=== PATIENT | female | born 1995 | race Caucasian/White ===

== ENCOUNTER 2021-09-01 06:59 | Day surgery (SDC) | payer OTHER ==
[2021-08-29 12:29] VITALS: BMI 30.4
[2021-09-01] MEDS ORDERED: Lidocaine 1% MPF 2 ML VIAL ONE (07:49)
[2021-09-01] MEDS ORDERED: PROPOFOL 20 ML ONE ×2 (09:17)
[2021-09-01] MEDS ORDERED: Lidocaine 2% MPF 10 ML AMP (For Epidural Use) ONE (09:17)
== END 2021-09-01 10:09 | disposition home or self-care (01) ==
LOC: CSHSDC 06:59
PROVIDERS: ATTEND Internal Medicine Gastroenterology
PROC: 0DJ08ZZ Inspection of Upper Intestinal Tract, Via Natural or Artificial Opening Endoscopic (ICD-10-PCS; principal; 2021-09-01)
DX: R10.9 Unspecified abdominal pain (principal); R11.0 Nausea; D64.9 Anemia, unspecified
CPT/HCPCS: J2704

== ENCOUNTER 2021-10-13 10:39 | Outpatient (CLI) | payer OTHER | END 2021-10-13 10:40 | disposition home or self-care (01) | LOC: CSHMRI 10:39 | PROVIDERS: ATTEND Neurological Surgery | DX: G93.9 Disorder of brain, unspecified (principal); R90.82 White matter disease, unspecified | CPT/HCPCS: 70553 ==

== ENCOUNTER 2021-11-28 08:27 | Outpatient (CLI) | payer OTHER | END 2021-11-28 08:28 | disposition home or self-care (01) | LOC: CSHRAD 08:27 | PROVIDERS: ATTEND Otolaryngology Plastic Surgery within the Head & Neck | DX: J36 Peritonsillar abscess (principal); Z98.890 Other specified postprocedural states; R16.2 Hepatomegaly with splenomegaly, not elsewhere classified; R59.0 Localized enlarged lymph nodes; E01.0 Iodine-deficiency related diffuse (endemic) goiter; J39.2 Other diseases of pharynx | CPT/HCPCS: 70491; 76700 ==

== ENCOUNTER 2022-04-13 15:26 | Day surgery (SDC) | payer OTHER ==
[2022-04-13 15:53] VITALS: BMI 30.6
[2022-04-13] MEDS ORDERED: Lactated Ringer's 1,000 ML IV SCH (16:30)
[2022-04-13] MEDS ORDERED: Magnesium Sulfate 20 gm/500 ml 20 GM/500 ML BAG IVPB SCH (17:00)
[2022-04-13] MEDS ORDERED: Betamet Acet/Betamet Na Ph 30 MG/5 ML VIAL IM SCH (17:00)
[2022-04-13] MEDS ORDERED: ceFAZolin 2 GM/Dextrose 50 ML IVPB ONE (17:11)
[2022-04-13] MEDS ORDERED: ceFAZolin 2 GM/Dextrose 50 ML 2 GM in Premix Bag 1 BAG IVPB SCH (22:00)
== END 2022-04-13 18:41 | disposition short-term general hospital (02) ==
LOC: CSHLD/OP 15:26
PROVIDERS: ATTEND Obstetrics & Gynecology
DX: O42.912 Preterm premature rupture of membranes, unspecified as to length of time between rupture and onset of labor, second trimester (principal); O09.212 Supervision of pregnancy with history of pre-term labor, second trimester; Z3A.23 23 weeks gestation of pregnancy; Z88.1 Allergy status to other antibiotic agents; Z88.2 Allergy status to sulfonamides; Z91.040 Latex allergy status
CPT/HCPCS: J0690; J0702; J3475

== ENCOUNTER 2022-06-23 18:42 | Day surgery (SDC) | payer OTHER ==
[2022-06-23 19:11] VITALS: BMI 29.7
[2022-06-23] MEDS ORDERED: hydrALAZINE 20 MG/ML VIAL SLOW IVP PRN (19:38)
[2022-06-23 20:06] LABS: Bilirubin Neg (Negative); Blood, Urine 150 (Negative); Clarity Clear (Clear); Glucose, Urine (Dipstick) Normal (Negative); Ketone, Urine Negative (Negative); Leukocyte 500 (Negative); Nitrite Negative (Negative); Protein, Urine (Dipstick) Negative (Neg-Trace); Specific Gravity, Urine 1.005 (1.002-1.036); Urobilinogen Normal mg/dL (Less than 2)
[2022-06-23 20:13] LABS: Bacteria/HPF Rare-Few HPF (None Seen); Mucous/LPF Rare LPF (<2+); Squamous Epithelial 0-3 HPF (0-3)
[2022-06-23 20:33] LABS: Hemoglobin 8.8 g/dL (12.0-15.5); Mean Corpuscular HGB CONC 34.9 g/dL (32.0-36.0); Mean Corpuscular Hemoglobin 33.3 pg (27.0-33.0); Mean Corpuscular Volume 95.5 fl (81.6-98.3); Mean Platelet Volume 9.6 fl (7.4-10.4); Platelet Count 170 10x3/uL (150-450); RBC Distribution Width 14.4 % (11.5-14.5); Red Blood Cell (RBC) Count 2.64 10x6/uL (3.90-5.03); White Blood Cell (WBC) Count 8.4 10x3/uL (3.5-10.5)
[2022-06-23 20:49] LABS: ALT (SGPT) Less than 6 U/L (8-55); AST (SGOT) 12 U/L (5-34); Albumin 2.9 g/dL (3.5-5.0); Alkaline Phosphatase 104 U/L (40-110); Anion Gap 13 mmol/L (10-20); BUN (Urea Nitrogen) Less than 4 mg/dL (7.0-18.7); Bilirubin, Total 0.3 mg/dL (0.2-1.2); Calc. Creatinine Clearance 264 mL/min (70-130); Calcium 8.6 mg/dL (7.8-10.44); Carbon Dioxide 19 mmol/L (22-29); Chloride 107 mmol/L (98-107); Estimated GFR 140; Globulin 2.1 g/dL (2.4-3.5); Glucose 67 mg/dL (70-105); Potassium 3.1 mmol/L (3.5-5.1); Sodium 136 mmol/L (136-145)
[2022-06-23] MEDS ORDERED: Potassium Chloride 20 MEQ TAB PO SCH (21:15)
[2022-06-23] MEDS ORDERED: Lactated Ringer's 1,000 ML IV SCH (21:15)
[2022-06-24] MEDS ORDERED: Ferrous Sulfate 325 MG TAB PO SCH (08:00)
== END 2022-06-23 23:27 | disposition home or self-care (01) ==
LOC: CSHLD/OP 18:42
PROVIDERS: ATTEND Obstetrics & Gynecology
DX: O99.283 Endocrine, nutritional and metabolic diseases complicating pregnancy, third trimester (principal); E87.6 Hypokalemia; O26.893 Other specified pregnancy related conditions, third trimester; R10.11 Right upper quadrant pain; O99.891 Other specified diseases and conditions complicating pregnancy; R51.9 Headache, unspecified; Z88.0 Allergy status to penicillin; Z88.2 Allergy status to sulfonamides; Z91.040 Latex allergy status; Z3A.33 33 weeks gestation of pregnancy
CPT/HCPCS: 36415; 80053; 81003; 81015; 85027; 96360; 99283

== ENCOUNTER 2022-06-28 12:56 | Day surgery (SDC) | payer OTHER ==
[2022-06-28 13:42] VITALS: BMI 30.9
== END 2022-06-28 15:08 | disposition home health service (06) ==
LOC: CSHLD/OP 12:56
PROVIDERS: ATTEND Obstetrics & Gynecology
DX: O36.8130 Decreased fetal movements, third trimester, not applicable or unspecified (principal); Z3A.34 34 weeks gestation of pregnancy; O99.013 Anemia complicating pregnancy, third trimester; D64.9 Anemia, unspecified; Z79.899 Other long term (current) drug therapy; Z88.2 Allergy status to sulfonamides; Z88.1 Allergy status to other antibiotic agents; Z91.040 Latex allergy status
CPT/HCPCS: 76815; 76819; 99282

== ENCOUNTER → 2022-07-09 | Day surgery (SDC) | payer OTHER ==
[~2022-07-09] MED LIST: Acetaminophen 500 MG TAB ONE; Acetaminophen 500 MG TAB PO SCH; Fentanyl 100 MCG/2 ML VIAL ONE; Iron Sucrose Complex 500 MG in Sodium Chloride 0.9% 250 ML 250 ML IVPB SCH; Midazolam HCl 2 mg/2 ml Vial ONE
== END ==
LOC: CSHSDC/OP 08:58
PROVIDERS: ATTEND Obstetrics & Gynecology
DX: O99.019 Anemia complicating pregnancy, unspecified trimester (principal); D64.9 Anemia, unspecified
CPT/HCPCS: J1756; J7050

== ENCOUNTER 2022-08-04 06:30 | Inpatient (IN) | payer OTHER ==
[2022-08-04] MEDS ORDERED: Misoprostol 200 MCG TAB PR PRN (12:03)
[2022-08-04] MEDS ORDERED: Carboprost 250 MCG/ML AMP IM PRN (12:03)
[2022-08-04] MEDS ORDERED: Lactated Ringer's 1,000 ML IV SCH (12:03)
[2022-08-04] MEDS ORDERED: Acetaminophen 500 MG TAB PO PRN (12:03)
[2022-08-04] MEDS ORDERED: Promethazine HCl 25 MG/ML VIAL IM PRN (12:03)
[2022-08-04] MEDS ORDERED: Diphenoxylate HCl/Atropine Tablet PO PRN ×2 (12:03)
[2022-08-04] MEDS ORDERED: Butorphanol Tartrate 1 MG/ML VIAL SLOW IVP PRN (12:03)
[2022-08-04] MEDS ORDERED: NS w/ Oxytocin 30 units 500 ML IV SCH ×2 (12:03)
[2022-08-04] MEDS ORDERED: Methylergonovine 0.2 MG/ML VIAL IM PRN (12:03)
[2022-08-04] MEDS ORDERED: Lidocaine 1% (PF) 30 ML VIAL SC PRN (12:03)
[2022-08-04] MEDS ORDERED: Ondansetron PF 4 MG/2 ML Vial IVP PRN (12:03)
[2022-08-04] MEDS ORDERED: hydrALAZINE 20 MG/ML VIAL SLOW IVP PRN ×3 (12:03→14:38)
[2022-08-04] MEDS ORDERED: Ibuprofen 800 MG TAB PO PRN (12:03)
[2022-08-04] MEDS ORDERED: HYDROcodone/Acetaminophen 5/325 mg Tablet PO PRN ×2 (12:03)
[2022-08-04 12:25] LABS: Hemoglobin 10.7 g/dL (12.0-15.5); Mean Corpuscular HGB CONC 33.6 g/dL (32.0-36.0); Mean Corpuscular Hemoglobin 34.1 pg (27.0-33.0); Mean Corpuscular Volume 101.3 fl (81.6-98.3); Mean Platelet Volume 10.4 fl (7.4-10.4); Platelet Count 171 10x3/uL (150-450); RBC Distribution Width 15.9 % (11.5-14.5); Red Blood Cell (RBC) Count 3.14 10x6/uL (3.90-5.03); White Blood Cell (WBC) Count 7.2 10x3/uL (3.5-10.5)
[2022-08-04 12:47] LABS: HBSAg Index 0.21 S/CO (0-0.99); Hep B Surf Ag Non-Reactive S/CO (NonReactive)
[2022-08-04 12:48] LABS: Syphilis Antibody Nonreactive (Nonreactive); Syphilis Antibody Index 0.04 S/CO (<1.00 Non-Reactive)
[2022-08-04] MEDS ORDERED: Fentanyl 2 mcg/Bup 0.1% Cadd 0 ML ONE (14:01)
[2022-08-04] MEDS ORDERED: diphenhydrAMINE 25 MG CAP PO PRN (14:38)
[2022-08-04] MEDS ORDERED: traMADol HCl 50 MG TAB PO PRN (14:38)
[2022-08-04] MEDS ORDERED: Bisacodyl 10 MG SUPP PR PRN ×2 (14:38)
[2022-08-04] MEDS ORDERED: Boostrix 0.5 ML (Tdap) VIAL (>/=7 yrs of age) IM ONE (14:38)
[2022-08-04] MEDS ORDERED: Benzocaine-Menthol 82.5 ML CAN TOP PRN (14:38)
[2022-08-04] MEDS ORDERED: Milk Of Magnesia 30 ML UDCUP PO PRN ×2 (14:38)
[2022-08-04] MEDS ORDERED: Lanolin Ointment 7 GM TUBE TOP PRN (14:38)
[2022-08-04] MEDS ORDERED: Preparation H Ointment 28 GM TUBE PR PRN (14:38)
[2022-08-04] MEDS ORDERED: Ferrous Sulfate 325 MG TAB PO SCH (17:00)
[2022-08-04] MEDS ORDERED: Docusate 100 MG CAP PO SCH (21:00)
[2022-08-04] MEDS: Docusate 100 MG CAP PO SCH (22:00)
[2022-08-04] MEDS: Ibuprofen 800 MG TAB PO SCH (22:13)
[2022-08-05] MEDS: Ibuprofen 800 MG TAB PO SCH ×2 (06:38→13:49)
[2022-08-05] MEDS: Ferrous Sulfate 325 MG TAB PO SCH ×2 (08:31→17:18)
[2022-08-05] MEDS ORDERED: Prenatal Vitamin 1 TAB PO SCH (09:00)
[2022-08-05] MEDS: Docusate 100 MG CAP PO SCH (09:12)
[2022-08-05 11:27] VITALS: BP 97/51; TEMP 97.8
== END 2022-08-05 17:50 | disposition home or self-care (01) | DRG 807 ==
LOC: CSHLD 09:51 → EEVIPCON 09:51 → CSHANTE 16:44
PROVIDERS: ADMIT Obstetrics & Gynecology; ATTEND Obstetrics & Gynecology
PROC: 10E0XZZ Delivery of Products of Conception, External Approach (ICD-10-PCS; 2022-08-04)
PROC: 3E0334Z Introduction of Serum, Toxoid and Vaccine into Peripheral Vein, Percutaneous Approach (ICD-10-PCS; principal; 2022-08-05)
DX: O26.893 Other specified pregnancy related conditions, third trimester (principal); Z37.0 Single live birth; Z3A.39 39 weeks gestation of pregnancy; Z80.9 Family history of malignant neoplasm, unspecified; Z67.11 Type A blood, Rh negative; Z88.1 Allergy status to other antibiotic agents; Z88.2 Allergy status to sulfonamides; Z91.040 Latex allergy status; Z20.822 Contact with and (suspected) exposure to COVID-19
CPT/HCPCS: 36415; 85027; 85461; 86780; 86850; 86900; 86901; 87340; 87811; 90384; 96372; J2590; J7120

== ENCOUNTER 2023-05-24 14:59 | Outpatient (CLI) | payer OTHER | END 2023-05-24 15:00 | disposition home or self-care (01) | LOC: CSHLAB 14:59 | PROVIDERS: ATTEND Obstetrics & Gynecology | DX: Z01.812 Encounter for preprocedural laboratory examination (principal); Z40.03 Encounter for prophylactic removal of fallopian tube(s) | CPT/HCPCS: 84703; 85027; 86850; 86900; 86901 ==